=== PATIENT | female | born 2000 | race Caucasian/White ===

== ENCOUNTER 2025-01-03 20:16 | Emergency (ER) | payer SELFPAY ==
[2025-01-03 20:29] VITALS: BP 142/79; PULSE 90; RESP 16; TEMP 36.8; O2SAT 99
--- NOTE | 2025-01-03 20:43 | ED.GENADULT ---
HPI - General Adult General Chief complaint: Unspecified Stated complaint: Generalized skin surface numbness x 4 hrs Time Seen by Provider: 01/03/25 20:32 History of Present Illness HPI narrative: Patient is a 24-year-old female who presents to the ER with generalized numbness. She reports her symptoms started after she woke up from a nap around 3:00 p.m. this afternoon. Patient reports she feels as though she had decreased pain sensory. She reports she were to rate her symptoms on a scale of 0-10 she would rate them between a 3 and 5. Patient reports the only time she has felt this way in the past is when she has used a lot of marijuana, and she reports she has not used in 5 days. She endorses a history of PCOS but denies any other medical history relevant to this ER visit. Patient reports she does not have a primary care provider at this time. She denies any headache, one-sided weakness or tingling, loss of continence, or recent fevers. Related Data Allergies Allergy/AdvReac Type Severity Reaction Status Date / Time No Known Allergies Allergy Verified 01/03/25 20:18 Review of Systems Review of Systems: All systems reviewed & are unremarkable except as noted in HPI and below Exam Narrative: GENERAL: Well appearing, well-nourished, non-toxic, in no acute distress. HEAD: Normocephalic, atraumatic. NECK: Supple. No adenopathy, no masses. RESPIRATORY: Airway patent, respirations nonlabored. Clear to auscultation bilaterally, no rales, rhonchi, wheezing. CARDIOVASCULAR: Regular rate and rhythm without murmurs, rubs, or gallops. Peripheral pulses 2+ and equal bilaterally. ABDOMINAL: Soft, nontender, nondistended, no hepatosplenomegaly. Normoactive BS. MUSCULOSKELETAL: Moves all extremities. Strength/ROM intact without gross deformities. SKIN: Warm, dry, normal color. No rashes. NEURO: A&O X3. Speech clear. Cranial nerves II-XII intact. No ataxic movements. PSYCHIATRIC: Appropriate mood and affect. Normal interaction. Course Vital Signs Vital signs: Vital Signs Temperature 36.8 C 01/03/25 20:29 Pulse Rate 90 01/03/25 20:29 Respiratory Rate 16 01/03/25 20:29 Blood Pressure 142/79 H 01/03/25 20:29 Pulse Oximetry 99 01/03/25 20:29 Oxygen Delivery Room Air 01/03/25 20:29 Temperature 36.8 C 01/03/25 20: Pulse Rate 90 01/03/25 20: Respiratory Rate 16 01/03/25 20:29 Blood Pressure 142/79 H 01/03/25 20:29 Pulse Oximetry 99 01/03/25 20:29 Oxygen Delivery Room Air 01/03/25 20:29 Medical Decision Making MDM Narrative Medical decision making narrative: Patient is a 24-year-old female who presents to the ER with generalized numbness. She reports her symptoms started after she woke up from a nap around 3:00 p.m. this afternoon. Patient reports she feels as though she had decreased pain sensory. She reports she were to rate her symptoms on a scale of 0-10 she would rate them between a 3 and 5. Patient reports the only time she has felt this way in the past is when she has used a lot of marijuana, and she reports she has not used in 5 days. She endorses a history of PCOS but denies any other medical history relevant to this ER visit. Patient reports she does not have a primary care provider at this time. She denies any headache, one-sided weakness or tingling, loss of continence, or recent fevers. Labs Ordered: CBC, CMP, CRP, ESR, TSH, COVID/flu/RSV swab, UA, UDS Imaging Ordered: None necessary Medications Ordered: None necessary Results: Patient's CBC indicates a white blood cell count 12.2. Her CMP indicates sodium 136. Her urinalysis indicates 2+ blood and trace leukocytes, but she had moderate squamous epithelial cells. Patient's UDS is negative. Her respiratory swab was also negative. Diagnosis: Generalized numbness Consults: neurology (outpatient) Patient Education/Shared MDM: Results of lab work shared with patient. Her results are reassuring and pt's pain is generalized (does not follow one neurological path), so there is low concern for pt having an acute neurological emergency upon discharge. She continues to deny any headaches, visual changes, or one-sided numbness/tingling. Patient strongly advised to maintain hydration status upon discharge and follow-up with her PCP as soon as possible. She will be discharged home with any new prescriptions. Pt can follow up with neurology outpatient, if needed. Strict return precautions provided. Patient verbalized understanding and is in agreement with plan. Vital signs stable at time of discharge. All questions answered. Differential Diagnosis Differential Diagnosis: COVID, hypothyroidism, urinary tract infection, dehydration, electrolyte abnormality Vital Signs Vital Signs: Vital Signs Temperature 36.8 C 01/03/25 20:29 Pulse Rate 90 01/03/25 20:29 Respiratory Rate 16 01/03/25 20:29 Blood Pressure 142/79 H 01/03/25 20:29 Pulse Oximetry 99 01/03/25 20:29 Oxygen Delivery Room Air 01/03/25 20:29 Temperature 36.8 C 01/03/25 20: Pulse Rate 90 01/03/25 20:29 Respiratory Rate 16 01/03/25 20:29 Blood Pressure 142/79 H 01/03/25 20:29 Pulse Oximetry 99 01/03/25 20:29 Oxygen Delivery Room Air 01/03/25 20:29 Lab Data Lab results reviewed: Yes I reviewed the patient's lab results. 01/03/25 21:12 01/03/25 21:12 Labs: Lab Results 01/03/25 01/03/25 01/03/25 Range/Units 21:12 21:30 21:35 WBC 12.2 H (4.5-10.0) K/mm3 RBC 4.30 (4.2-5.4) M/mm3 Hgb 12.3 (12.0-15.0) g/dL Hct 37.5 (37.0-47.0) % MCV 87.2 (80-100) fl MCH 28.6 (26-34) pg MCHC 32.8 (32-36) g/dl RDW 12.3 (11.5-14.5) % Plt Count 260 (150-375) k/mm3 MPV 10.1 (7.4-10.4) fl Immature Gran % (Auto) 0.2 (0-0.5) % Neut % (Auto) 69.6 (45.5-73.1) % Lymph % (Auto) 20.5 (18.3-44.2) % Benzie % (Auto) 8.8 H (2.6-8.5) % Eos % (Auto) 0.6 (0-4.4) % Baso % (Auto) 0.3 (0.2-1.2) % Lymph # (Auto) 2.49 (0.9-3.2) K/mm3 Benzie # (Auto) 1.1 H (0.1-0.6) K/mm3 Eos # (Auto) 0.1 (0-0.3) K/mm3 Baso # (Auto) 0.0 (0.0-0.1) K/mm3 Abs Immat Gran (auto) 0.03 (0.00-0.031) K/mm3 Absolute Neuts (auto) 8.5 H (1.3-6.7) K/mm3 Absolute Nucleated RBC 0.000 (0.0-0.012) K/mm3 Nucleated RBC % 0.0 (0.0-0.2) % ESR 19 (0-20) mm/hr Sodium 136 L (137-145) mmol/L Potassium 3.8 (3.4-5.0) mmol/L Chloride 103 (98-107) mmol/L Carbon Dioxide 22 (22-30) mmol/L Anion Gap 11 (4-12) mmol/L BUN 11 (7-17) mg/dL Creatinine 0.80 (0.7-1.0) mg/dL Estim Creat Clear Calc 123 ml/min Estimated GFR > 60 (59 - ) Glucose 108 (65-110) mg/dL POC Capillary Glucose 90 (65-105) mg/dl Calcium 9.0 (8.4-10.2) mg/dL Total Bilirubin 0.2 (0.2-1.3) mg/dL AST 28 (14-36) U/L ALT 23 (6-35) U/L Alkaline Phosphatase 52 (38-126) U/L C-Reactive Protein 0.6 (<1.0) mg/dL Total Protein 7.8 (6.3-8.2) g/dL Albumin 4.3 (3.5-5.1) g/dL TSH (Reflex) Pending Urine Color Yellow (Yellow) Urine Appearance Clear (Clear) Urine pH 6.5 (5.0-9.0) Ur Specific [employer] 1.015 (1.001-1.035) Urine Protein Negative (Negative) mg/dL Urine Glucose (UA) Negative (Negative) mg/dL Urine Ketones Negative (Negative) mg/dL Ur Blood (Man) 2+ H (Negative) Urine Nitrate Negative (Negative) Urine Bilirubin Negative (Negative) Urine Urobilinogen 0.2 (<2.0) mg/dL Leukocyte Esterase Rfl Trace H (Negative) TAVON/UL Urine RBC 0-2 (0-2) /hpf Urine WBC 0-5 (0-3) /hpf Ur Squamous Epith Cells Moderate (Few) /hpf Urine Bacteria 1+ H /hpf Urine Casts 0-2 Urine Opiates Screen Negative (Negative) Urine Methadone Screen Negative (Negative) Ur Barbiturates Screen Negative (Negative) Ur Phencyclidine Scrn Negative (Negative) Ur Amphetamine Screen Negative (Negative) U Benzodiazepines Scrn Negative (Negative) Urine Cocaine Screen Negative (Negative) U Cannabinoids Screen Negative (Negative) Influenza A (RT-PCR) Negative (Negative) Influenza B (RT-PCR) Negative (Negative) RSV (RT-PCR) Negative (Negative) SARS-CoV-2 RNA (RT-PCR) Negative (Negative) Discharge Plan Discharge Clinical Impression: Numbness Patient Disposition: Home Condition: Stable Instructions: Antibiotic Form Additional Instructions: Please return to the ER with any worsening symptoms. Follow-up with primary care provider as soon as possible. You may follow-up with neurology as needed. No new medications were prescribed today. You may take Tylenol and/or Ibuprofen for pain control. Please remember to stay hydrated. Patient Language: Frisian Follow-up/Referrals: Cruz Singh MD [Physician] - (neurology ) PHYSICIAN,REAL ESTATE APPRAISER SUPERVISOR [Primary Care Provider] - Stand Alone Forms: Work/School Release IP Time of Disposition: 23:30
--- NOTE | 2025-01-03 20:56 | ECG_ITS ---
Test Date: 2025-01-03 21:14:18 Measurements Intervals [place] Rate: 66 P: 56 CT: 166 QRS: 31 QRSD: 104 T: 27 QT: 407 QTc: 427 Interpretive Statements SINUS RHYTHM DELAYED PRECORDIAL R/S TRANSITION BASELINE ARTIFACT- I, II, III, AVR, AVL, AVF BORDERLINE ECG No previous ECG available for comparison Electronically Signed On 01-04-2025 06:03:10 CDT by Martin Guillermo D.O.
--- OUTSIDE RECORDS SUMMARY | 2025-01-03 21:03 | XMS_ITS | Continuity of Care Document ---
Author Organization [facility] Address [address] [place] [address] Phone Care Team Providers Care Veneer Redrier Name Role Phone Chris Spann MD Unavailable Unavailable Allergies, Adverse Reactions, Alerts Substance Reaction Status Criticality Penicillins Active No Information Advance Directives Directive Yes / No Effective Date File Name No Information Encounters Encounter Description Practice Location Reason(s) For Visit Diagnoses Date Provider Providers Copied on Encounter [facility] , [address], [place], [address], [place] tel:[phone] [facility] Pain in left kneeSprain of left knee, unspecified ligament, initial encounter Dec-0 6201 [address] [place], [place], [id number] . tel:[phone] Family History Family Member Type Diagnosis Age At Onset Problem (finding) Family history of Cance r, unknown Problem (finding) Family history of Renal disease Problem (finding) Family history of Arthr itis Payers Payer name Insurance type Covered democrat ID Authoriza tion(s) No Information Social History Type Description Quantity Date Captured Comments Sex Female Smoking Status No Information Chief Complaint And Reason For Visit No Information Reason For Referral Reason For Referral No Information History Of Present Illness Encounter Date Complaint History Of Prese nt Illness No Information Functional Status Date Functional Assessmen t No Information Instructions Date Instruction Additional Infor mation No Information Assessments Type Assessment Date No Information Patient Care Teams Name Effective Dates (start - stop) Status Members No Information
--- OUTSIDE RECORDS SUMMARY | 2025-01-03 21:03 | XMS_ITS | Encounter Summary ---
Author Organization [facility] Address [address] [place] [address] Care Team Providers Care Team Automobile Assembler Name Role Phone Domenic Cordova DO Primary Care Provider Unavail able Encounter Details Date Type Department Care Team (Late st Contact Info) Description 10/11/2019 Orders Only [facility] [address] [place] [address] Amina Snell, DOCUMENTATION IMPROVEMENT SPECIALIST Right foot pain (Primary Dx) Social History Tobacco Use Types Packs/Day Years Used Date Smoking Tobacco: Never Smokeless Tobacco: Never Alcohol Use Standard Drinks/Week Comments No 0 (1 standard drink = 0.6 oz pur e alcohol) Comments Unknown Sex and Gender Information Value Date Recorded Sex Assigned at Not on file Legal Sex Female 10:06 AM HEALTH AND SAFETY ADVISOR Gender Identity Not on file Sexual Orientation Not on file documented as of this encounter Plan of Treatment Not on file documented as of this encounter Visit Diagnoses Diagnosis Right foot pain- Primary Pain in soft tissues of limb documented in this encounter Care Teams Team Automobile Assembler Relationship Specialty Start Date End Date Domenic Cordova DO PCP - General Family Medicine 08/15/16 documented as of this encounter
--- OUTSIDE RECORDS SUMMARY | 2025-01-03 21:03 | XMS_ITS | Encounter Summary ---
Author Organization [facility] Address [address] [place] [address] Care Team Providers Care Supervisor Painting Shipyard Name Role Phone Domenic Cordova DO Primary Care Provider Unavail able Encounter Details Date Type Department Care Team (Late st Contact Info) Description 10/04/2019 Orders Only [facility] [address] [place] [address] Radha Lubin, [facility] Social History Tobacco Use Types Packs/Day Years Used Date Smoking Tobacco: Never Smokeless Tobacco: Never Alcohol Use Standard Drinks/Week Comments No 0 (1 standard drink = 0.6 oz pur e alcohol) Comments Unknown Sex and Gender Information Value Date Recorded Sex Assigned at Not on file Legal Sex Female 10:06 AM KERSEY DEPARTMENT SUPERVISOR Gender Identity Not on file Sexual Orientation Not on file documented as of this encounter Plan of Treatment Not on file documented as of this encounter Visit Diagnoses Not on filedocumented in this encounter Care Teams Supervisor Painting Shipyard Relationship Specialty Start Date End Date Domenic Cordova DO PCP - General Family Medicine 08/15/16 documented as of this encounter
--- OUTSIDE RECORDS SUMMARY | 2025-01-03 21:03 | XMS_ITS | Clinical Summary ---
Author Organization [facility] Address [address] [place] [address] Care Team Providers Care Sales Ledger Clerk Name Role Phone Art Domenic D DO Primary Care Provider Unavail able Source Comments [facility],non-owned Affiliates and Associated Physician Practices is amultiple site organization consisting of ambulatory clinics and hospital sitesin [place], [place], [place] and [place]. This disclosure is being madepursuant to the Care Everywhere program and may not contain all information available regarding this patient. Last updated 18.[facility] Allergies No known active allergies Medications * Be aware that medications may not be up to date on this document. Alwaysverify current medications with the patient. cefUROXime (CEFTIN) 250 MG tablet Take 1 tablet by mouth every 12 hours 5 tablet 12/24/2018 Active ondansetron, disintegrating, (ZOFRAN ODT) 4 MG tablet Take 1 tablet by mouth every 6 hours as needed for Nausea/Vomiti ng Allow tablet to dissolve on the tongue 4 tablet 12/24/2018 Active Social History Tobacco Use Types Packs/Day Years Used Date Smoking Tobacco: Never Smokeless Tobacco: Never Alcohol Use Standard Drinks/Week Comments No 0 (1 standard drink = 0.6 oz pur e alcohol) Comments No Sex and Gender Information Value Date Recorded Sex Assigned at Not on file Legal Sex Female 8:38 PM CDT Gender Identity Not on file Sexual Orientation Not on file Last Filed Vital Signs Vital Sign Reading Time Taken Comments Blood Pressure 112/53 12/24/2018 1:30 AM CDT Pulse 83 12/23/2018 8:41 PM CDT Temperature 36.7 C (98 F) 12/24/2018 1:30 AM CDT Respiratory Rate 16 12/24/2018 1:30 AM CDT Oxygen Saturation 99% 12/24/2018 1:30 AM CDT Inhaled Oxygen Concentration - - Weight 83.9 kg (185 lb) 12/23/2018 8:41 PM CDT Height - - Body Mass Index - - Plan of Treatment Health Maintenance Due Date Last Done Comments HIV SCREENING 2016 HPV VACCINE (1 - 3-dose series) 2016 CHLAMYDIA/GONORRHEA SCREENING 2017 MENINGOCOCCAL (Group B) VACC INE SHARED DECISION-MAKING (1 of 2 - Standard) 2017 HEPATITIS C SCREENING 03/18/2019 DTAP/TDAP/TD VACCINES (1 - Tdap) 2020 HEPATITIS B VACCINE (1 of 3 - 19+ 3-dose series) 2020 COVID-19 VACCINE (1 - 2023-2 5 season) 2024 DEPRESSION SCREENING 07/27/2024 INFLUENZA VACCINE (Season Ended) 2025 ZOSTER VACCINE (1 of 2) 2051 HIB VACCINE Aged Out No longer eligi ble based on patient's age to complete this topic MENINGOCOCCAL GROUPS A/C/Y/W VACCINE Aged Out No longer eligible b ased on patient's age to complete this topic PNEUMOCOCCAL VACCINE Aged Out No long er eligible based on patient's age to complete this topic Insurance [place] [id number] [facility] Care Teams Sales Ledger Clerk Relationship Specialty Start Date End Date Domenic Cordova, PCP - General Family Medicine 12/23/18
--- OUTSIDE RECORDS SUMMARY | 2025-01-03 21:03 | XMS_ITS | Clinical Summary ---
Author Organization [facility] [address] Address [address] [place] [address] Care Team Providers Care Family Practice Physician Assistant Name Role Phone Miscellaneous, Not In File Primary Care Provider Unavailable Allergies No known active allergies Medications No known medications Active Problems No known active problems Encounters Date Type Department Care Team Description 01/03/2025 7:15 PM CDT Office Visit [facility] at [address] [id number] Conchis Hurst NP Other disturbances of skin sensation (Primary Dx) from Last 3 Months Social History Tobacco Use Types Packs/Day Years Used Date Smoking Tobacco: Never Assessed Personal Safety Answer Date Recorded Getting School Help Needed Not on file 09/26 Comments Unknown Sex and Gender Information Value Date Recorded Sex Assigned at Not on file Legal Sex Female 10:34 AM CDT Gender Identity Not on file Sexual Orientation Not on file Obstetrics History Last Filed Vital Signs Vital Sign Reading Time Taken Comments Blood Pressure 128/80 01/03/2025 7:19 PM CDT Pulse 81 01/03/2025 7:19 PM CDT Temperature 36.8 C (98.2 F) 01/03/2025 7:19 PM CDT Respiratory Rate 18 01/03/2025 7:19 PM CDT Oxygen Saturation 99% 01/03/2025 7:19 PM CDT Inhaled Oxygen Concentration - - Weight 112.2 kg (247 lb 4.8 oz) 01/03/2025 7:19 PM CDT Height 170.2 cm (5' 7) 01/03/2025 7:19 PM CDT Body Mass Index 38.73 01/03/2025 7:19 PM CDT Plan of Treatment Health Maintenance Due Date Last Done Comments Cervical Cancer Screening 2001 Depression Screening 2001 Hepatitis C Screening 2001 HPV Vaccines (1 - 3-dose series) 2016 Meningococcal B Vaccine (1 o f 2 - Standard) 2017 Regular Well Visit/Exam 18-64 2019 Influenza Vaccine (Season Ended) 2025 DTaP/Tdap/Td Vaccine (7 - Td or Tdap) 06/22/2029 06/22/2019, 10/26/2006, 08/02/2002, Additional history exists Hepatitis B Screening Completed 03/31/2002, 002 Pneumococcal vaccine <65 Completed 003, 2001, 2001, Additional history exists Varicella Vaccines Completed 10/26/2006, 03/31/2002 Care Teams Family Practice Physician Assistant Relationship Specialty Start Date End Date Miscellaneous, Not In File PCP - General 03/06/21
--- OUTSIDE RECORDS SUMMARY | 2025-01-03 21:03 | XMS_ITS | Clinical Summary ---
Author Organization [facility] Address [address] [place] [address] Care Team Providers Care Multi Skilled Operator Name Role Phone ArtDomenic love Landon MOISE Primary Care Provider Unavail able Allergies No known active allergies Medications No known medications Active Problems No known active problems Family History Medical History Relation Name Comments No Known Problems Brother 1 No Known Problems Brother 2 No Known Problems Father No Known Problems Maternal Grandfather Breast cancer Maternal Grandmother No Known Problems Mother No Known Problems Paternal Grandfather Brain cancer Paternal Grandmother Breast cancer Paternal Grandmother Relation Name Status Comments Brother 1 Alive Brother 2 Alive Father Alive Maternal Grandfather Alive Maternal Grandmother Alive Mother Alive Paternal Grandfather Alive Paternal Grandmother Social History Tobacco Use Types Packs/Day Years Used Date Smoking Tobacco: Never Smokeless Tobacco: Never Alcohol Use Standard Drinks/Week Comments No 0 (1 standard drink = 0.6 oz pur e alcohol) Comments Unknown Sex and Gender Information Value Date Recorded Sex Assigned at Not on file Legal Sex Female 10:06 AM PERIOPERATIVE NURSE Gender Identity Not on file Sexual Orientation Not on file Last Filed Vital Signs Vital Sign Reading Time Taken Comments Blood Pressure 114/68 08/15/2016 4:37 PM PERIOPERATIVE NURSE Pulse 72 08/15/2016 4:37 PM PERIOPERATIVE NURSE Temperature 36.7 C (98.1 F) 08/15/2016 4:37 PM PERIOPERATIVE NURSE Respiratory Rate 18 08/15/2016 4:37 PM PERIOPERATIVE NURSE Oxygen Saturation - - Inhaled Oxygen Concentration - - Weight 79.8 kg (176 lb) 08/15/2016 4:37 PM PERIOPERATIVE NURSE Height 163.8 cm (5' 4.5) 08/15/2016 4:37 PM PERIOPERATIVE NURSE Body Mass Index 29.74 08/15/2016 4:37 PM PERIOPERATIVE NURSE Plan of Treatment Health Maintenance Due Date Last Done Comments Annual Wellness 2001 MMR Vaccines (1 of 1 - Stand talon series) 2002 Varicella Vaccines (1 of 2 - 13+ 2-dose series) 2014 HPV Vaccines (1 - 3-dose series) 2016 Hepatitis B Vaccines (1 of 3 - 19+ 3-dose series) 2020 Td, Tdap Vaccines Adult 2020 Pap Smear 2022 Influenza Vaccination (Seas[place] n Ended) 2025 HIB Vaccines Aged Out No longer eligi ble based on patient's age to complete this topic Hepatitis A Vaccines Aged Out No long er eligible based on patient's age to complete this topic IPV Vaccines Aged Out No longer eligi ble based on patient's age to complete this topic Meningococcal Vaccines Aged Out No lo nger eligible based on patient's age to complete this topic Pneumococcal Vaccine: Pediat rics (0 to 5 Years) and At-Risk Patients (6 to 49 Years) Aged Out No longer eligible b ased on patient's age to complete this topic RSV Mab Nirsevimab (Beyfortu s) <20 months Aged Out No longer eligible b ased on patient's age to complete this topic Rotavirus Vaccines Aged Out No longer eligible based on patient's age to complete this topic Insurance [employer] Care Teams Multi Skilled Operator Relationship Specialty Start Date End Date Domenic Cordova DO PCP - General Family Medicine 08/15/16
--- OUTSIDE RECORDS SUMMARY | 2025-01-03 21:03 | XMS_ITS | Clinical Summary ---
Author Organization [facility] Address [address] [place] [address] Care Team Providers Care Bat Lathe Operator Name Role Phone Chuckie Abbott MD Primary Care Provider [phone] Allergies No known active allergies Medications No known medications Active Problems Problem Noted Date Diagnosed Date Missed vaccination due to parent refusal 018 Strain of right ankle 05/31/2018 Immunizations Immunization Administration Dates Next Due (ADACEL/BOOSTRIX)(10 YR UP) TDAP VACCINE, 0.5ML, IM 06/22/2019 (INFANRIX)(6 WKS-6 YRS) DIPT HERIA, TETANUS TOXOIDS, AND ACCELLULAR PERTUSSIS VACCINE (DTAP), 0.5 ML IM 10/26/2006,08/02/2002,2001,07/28,2001 (IPOL)(6 WKS AND UP) POLIOVI LALI VACCINE, INACTIVATED (IPV), 3 DOSE, SUBCUT OR IM 10/26/2006,03/31/2002,2001,05/26 (M-M-R II/PRIORIX)(12 MO UP) MEASLES, MUMPS AND RUBELLA VIRUS VACCINE, 0.5 ML IM/SUBCUT 10/26/2006,08/02/2002 (MENACTRA)(9 MO-55 YR) MENIN GOCOCCAL POLYSACCHARIDE A, C, Y AND W-135 DIPTHERIA TOXOID CONJUGATE VACCINE, (PF), 0.5ML, IM 06/22/2019 (VARIVAX)(12 MOS UP)VARICELL A VIRUS VACCINE (PF) 0.5 ML, SUB CUT 10/26/2006,03/31/2002 HIB, Unspecified Formulation 2001 Hepatitis B and Haemophilus Influenzae Type B Vaccine (Hib-HepB)IM 03/31/2002,2001 Pneumococcal 7-valent conjug ate vaccine IM 08/02/2002,2001,2001,05/26 Family History Medical History Relation Name Comments Healthy Brother Healthy Father Healthy Half-Brother Healthy Mother Relation Name Status Comments Brother Alive Father Alive Half-Brother Alive Mother Alive Social History Tobacco Use Types Packs/Day Years Used Date Smoking Tobacco: Never Smokeless Tobacco: Never Alcohol Use Standard Drinks/Week Comments No 0 (1 standard drink = 0.6 oz pur e alcohol) Comments No Sex and Gender Information Value Date Recorded Sex Assigned at Not on file Legal Sex Female 11:34 AM CDT Gender Identity Not on file Sexual Orientation Not on file Last Filed Vital Signs Vital Sign Reading Time Taken Comments Blood Pressure 102/60 03/07/2020 2:20 PM CDT Pulse 76 03/07/2020 2:20 PM CDT Temperature 36.6 C (97.8 F) 03/07/2020 2:20 PM CDT Respiratory Rate 18 03/07/2020 2:20 PM CDT Oxygen Saturation 98% 03/07/2020 2:20 PM CDT Inhaled Oxygen Concentration - - Weight 85.3 kg (188 lb) 03/07/2020 2:20 PM CDT Height 166.4 cm (5' 5.5) 03/07/2020 2:20 PM CDT Body Mass Index 30.81 03/07/2020 2:20 PM CDT Plan of Treatment Health Maintenance Due Date Last Done Comments HEPATITIS B VACCINES (3 of 3 - 3-dose series) 05/26/2002 03/31/2002, 2001 CHLAMYDIA SCREENING (ANNUAL) 11-24 YEARS 2012 HPV VACCINES (1 - 3-dose series) 2016 CERVICAL CANCER SCREENING 2022 HPV/Cotest (21-29) 2022 PAP SMEAR 2022 INFLUENZA VACCINE (#1) 2024 06/22/2019, 2017 DTAP/TDAP/TD VACCINES (7 - T d or Tdap) 06/22/2029 06/22/2019, 10/26/2006, 08/02/2002, Additional history exists Insurance [employer] OPEN ACCESS HMO [employer] OPEN ACCESS HMO * Guarantor: [employer] [facility] ([employer]) Account Type Relation to Patient Date of Phone Billing Address Corporate Other [id number] [place] [id number] Care Teams Bat Lathe Operator Relationship Specialty Start Date End Date Chuckie Abbott MD PCP - General Family Practice 05/26/18
--- OUTSIDE RECORDS SUMMARY | 2025-01-03 21:03 | XMS_ITS | Encounter Summary ---
Author Organization [facility] Healthcare Address [address] [place] [address] Care Team Providers Care Coating Mixer Name Role Phone Miscellaneous, Not In File Primary Care Provider Unavailable Reason for Referral * Consultation (Routine) - Pending Review Specialty Diagnoses / Procedures Referred By Lindsey t Referred To Contact Family Medicine Diagnoses Other disturbances of skin sensation Conchis Hurst NP [address] [place] [address] Phone: tel: fax: [facility] Referral ID Status Reason Start Date Expiration Date Visits Requested Visits Authorized [id number] Pending Review Specialty Services Required 01/03/2025 02/02/2026 1 1 Question Answer Please select the performing region: [facility] [[id number]] # of visits: 1 Reason for Visit * Reason Comments Numbness General numbness in her skin, loss of feeling in her skin, started today about 4 hours ago Encounter Details Date Type Department Care Team (Late st Contact Info) Description 01/03/2025 7:15 PM CDT Office Visit [facility] Medical [facility] at [address] [address] Conchis Hurst NP [address] [place] [id number] Other disturbances of skin sensation (Primary Dx) Social History Tobacco Use Types [...] on file documented as of this encounter Last Filed Vital Signs Vital Sign Reading [...] Mass Index 38.73 01/03/2025 7:19 PM CDT documented in this encounter Plan of Treatment Scheduled Referrals Name Type Priority Associated Diagnoses Orde r Schedule Ambulatory referral to Family Practice Outpatient Referral Routine Other disturbances of skin sensation 1 Occurrences starting 01/03/2025 until 01/03/2026 documented as of this encounter Visit Diagnoses Diagnosis Other disturbances of skin sensation- Primary documented in this encounter Care Teams Coating Mixer Relationship Specialty Start Date End Date Miscellaneous, Not In File PCP - General 03/06/21 documented as of this encounter
--- OUTSIDE RECORDS SUMMARY | 2025-01-03 21:03 | XMS_ITS | Referral Summary ---
Author Organization [facility] [address] Address [address] [place] [address] Care Team Providers Care Investigations Manager Name Role Phone Miscellaneous, Not In File Primary Care Provider Unavailable Encounters Date Type Department Care Team Description 01/03/2025 7:15 PM CDT Office Visit [facility] at [address] [address] Conchis Hurst NP Other disturbances of skin sensation (Primary Dx) from Last 3 Months Allergies No known active allergies Medications No known medications Active Problems No known active problems Social History Tobacco Use Types Packs/Day Years [...] 01/03/2025 7:19 PM CDT Plan of Treatment Not on file Care Teams Investigations Manager Relationship Specialty Start Date End Date Miscellaneous, Not In File PCP - General 03/06/21
[2025-01-03 21:19] LABS: Basophils Percent Auto 0.3 % (0.2-1.2); Eosinophils Absolute Auto 0.1 K/mm3 (0-0.3); Eosinophils Percent Auto 0.6 % (0-4.4); Hematocrit 37.5 % (37.0-47.0); Hemoglobin 12.3 g/dL (12.0-15.0); Immature Granulocyte Absolute 0.03 K/mm3 (0.00-0.031); Immature Granulocyte Percent A 0.2 % (0-0.5); Lymphocytes Absolute Auto 2.49 K/mm3 (0.9-3.2); Lymphocytes Percent Auto 20.5 % (18.3-44.2); Mean Corpuscular HGB Conc 32.8 g/dl (32-36); Mean Corpuscular Hemoglobin 28.6 pg (26-34); Mean Corpuscular Volume 87.2 fl (80-100); Mean Platelet Volume 10.1 fl (7.4-10.4); Monocytes Absolute Auto 1.1 K/mm3 (0.1-0.6); Monocytes Percent Auto 8.8 % (2.6-8.5); Neutrophils Absolute Auto 8.5 K/mm3 (1.3-6.7); Neutrophils Percent Auto 69.6 % (45.5-73.1); Platelet Count Result 260 k/mm3 (150-375); Red Cell Distribution Width 12.3 % (11.5-14.5); White Blood Count 12.2 K/mm3 (4.5-10.0)
[2025-01-03 21:32] LABS: Glucose Point of Care 90 mg/dl (65-105)
--- NOTE | 2025-01-03 21:32 | PC.NURSE ---
Blood sugar 90.
[2025-01-03 21:48] LABS: Add Urine Microscopic? YES; Appearance Urine Clear (Clear); Bacteria Urine 1+ /hpf; Bilirubin Urine Negative (Negative); Blood Urine 2+ (Negative); Color Urine Yellow (Yellow); Glucose Urine UA Negative (Negative); Ketones Urine Negative (Negative); Leukocyte Esterase Ur Trace LEU/UL (Negative); Nitrate Urine Negative (Negative); Non Pathogenic Casts 0-2; Protein Urine Negative (Negative); RBC Urine 0-2 /hpf (0-2); Specific Grav Ur 1.015 (1.001-1.035); Squamous Epithelial Cell Urine Moderate /hpf (Few); Urobilinogen Urine 0.2 mg/dL (<2.0); WBC Urine 0-5 /hpf (0-3); pH Urine 6.5 (5.0-9.0)
[2025-01-03 21:55] LABS: Influenza A QL RT-PCR Negative (Negative); Influenza B QL RT-PCR Negative (Negative); RSV RNA, RT-PCR Negative (Negative); SARS-CoV-2 RNA PCR Negative (Negative)
[2025-01-03 22:04] LABS: Erythrocyte Sedimentation Rate 19 mm/hr (0-20)
[2025-01-03 22:37] LABS: Amphetamine Screen Urine Negative (Negative); Barbiturate Screen Urine Negative (Negative); Benzodiazepines Screen Urine Negative (Negative); Cannabinoid Screen Urine Negative (Negative); Cocaine Screen Urine Negative (Negative); Methadone Screen Urine Negative (Negative); Opiate Screen Urine Negative (Negative); Phencyclidine Screen Urine Negative (Negative)
[2025-01-03 23:09] LABS: Alanine Aminotransferase 23 U/L (6-35); Albumin Level 4.3 g/dL (3.5-5.1); Alkaline Phosphatase 52 U/L (38-126); Anion Gap 11 mmol/L (4-12); Aspartate Amino Transferase 28 U/L (14-36); Bilirubin,Total 0.2 mg/dL (0.2-1.3); Blood Urea Nitrogen 11 mg/dL (7-17); CRP 0.6 mg/dL (<1.0); Carbon Dioxide 22 mmol/L (22-30); Chloride 103 mmol/L (98-107); Estimated CRCL calculation 123 ml/min; Estimated Glomerular Filt Rate > 60; Glucose 108 mg/dL (65-110); Potassium 3.8 mmol/L (3.4-5.0); Sodium 136 mmol/L (137-145); Total Protein 7.8 g/dL (6.3-8.2)
[2025-01-03 23:46] VITALS: BP 140/69; PULSE 79; RESP 16; O2SAT 100
[2025-01-04 00:23] LABS: Free T4 Free Thyroxine Reflex 1.09 ng/dL (0.78-2.19)
[2025-01-04 01:06] LABS: Total Triiodothyronine (T3) 1.62 NG/ML (0.82-1.58)
== END 2025-01-03 23:48 | disposition home or self-care (01) ==
PROVIDERS: Emergency Provider Registered Nurse
DX: R20.0 Anesthesia of skin (principal); E28.2 Polycystic ovarian syndrome; Z20.822 Contact with and (suspected) exposure to COVID-19; R94.31 Abnormal electrocardiogram [ECG] [EKG]
CPT/HCPCS: 36415; 80053; 80307; 81001; 82948; 84439; 84443; 84480; 85025; 85652; 86140; 87637; 93005; 99283